=== PATIENT | female | born 1960 | race Caucasian/White ===

== ENCOUNTER 2022-05-05 10:42 | Emergency (ER) | payer MEDICAID, OTHER ==
[~2022-05-05] VITALS: Ht 160 cm; Wt 65.9 kg
[2022-05-05] MEDS ORDERED: BUSP10TA PO (11:03)
[2022-05-05 11:57] LABS: BASO % 0.4 % (0.0-1.0); EOS # 0.3 10^3/uL (0.0-0.5); EOS % 2.6 % (0.0-3.0); LYMPH # 2.2 10^3/uL (1.5-5.0); MEAN CORPUSCULAR HGB CONC 32.4 g/dl (32.0-36.5); MEAN CORPUSCULAR VOLUME 86.4 fl (80.0-96.0); MONO # 0.9 10^3/uL (0.0-0.8); MONO % 7.7 % (2.0-8.0); NEUTROPHILS # 7.9 10^3/uL (1.5-8.5); NEUTROPHILS % 69.8 % (36.0-66.0); PLATELET COUNT, AUTOMATED 283 10^3/uL (150-450); RED BLOOD COUNT 4.28 10^6/uL (4.00-5.40); WHITE BLOOD COUNT 11.4 10^3/uL (4.0-10.0)
[2022-05-05 12:12] LABS: CK-MB VALUE MASS < 1.0 NG/ML (<3.6)
[2022-05-05 12:13] LABS: CPK CREATINE PHOSPHOKINASE 110 U/L (34-145)
[2022-05-05] MEDS ORDERED: ISOVUE-370 76% 100ML VIAL As Ordered ONE (12:24)
[2022-05-05] MEDS ORDERED: ASPIRIN 81MG CHEW TABLET PO ONE (12:30)
[2022-05-05 13:00] VITALS: BP 161/83
== END 2022-05-05 13:34 | disposition home or self-care (01) ==
LOC: M ED 10:42
DX: R07.9 Chest pain, unspecified (principal); F43.10 Post-traumatic stress disorder, unspecified; Z91.013 Allergy to seafood; Z79.83 Long term (current) use of bisphosphonates

== ENCOUNTER 2022-06-10 08:19 | Emergency (ER) | payer OTHER ==
[~2022-06-10] VITALS: Ht 160 cm; Wt 72.7 kg
[~2022-06-10 08:19] MED LIST: BUSP10TA PO
[2022-06-10 09:19] LABS: BASO % 0.4 % (0.0-1.0); EOS # 0.3 10^3/uL (0.0-0.5); EOS % 3.2 % (0.0-3.0); HEMATOCRIT 39.8 % (36.0-47.0); HEMOGLOBIN 12.8 g/dl (12.0-15.5); LYMPH # 2.1 10^3/uL (1.5-5.0); LYMPH % 27.3 % (24.0-44.0); MEAN CORPUSCULAR HEMOGLOBIN 28.3 pg (27.0-33.0); MEAN CORPUSCULAR HGB CONC 32.2 g/dl (32.0-36.5); MEAN CORPUSCULAR VOLUME 87.9 fl (80.0-96.0); MONO # 0.6 10^3/uL (0.0-0.8); MONO % 7.8 % (2.0-8.0); NEUTROPHILS # 4.8 10^3/uL (1.5-8.5); PLATELET COUNT, AUTOMATED 307 10^3/uL (150-450); RED BLOOD COUNT 4.53 10^6/uL (4.00-5.40); WHITE BLOOD COUNT 7.8 10^3/uL (4.0-10.0)
[2022-06-10] MEDS ORDERED: ISOVUE-370 76% 100ML VIAL As Ordered ONE (09:32)
[2022-06-10 09:43] LABS: LIPASE 35 U/L (12-53)
[2022-06-10 09:43] LABS: ETHYL ALCOHOL (ETHANOL) 0.003 % (0.000-0.010)
[2022-06-10 09:45] LABS: ALBUMIN 3.7 G/DL (3.2-5.2); ALKALINE PHOSPHATASE 67 U/L (46-116); ALT/SGPT 13 U/L (7.0-40); AST/SGOT 17 U/L (<34); BILIRUBIN,DIRECT 0.2 MG/DL (<0.4); BILIRUBIN,TOTAL 0.5 MG/DL (0.3-1.2); CK-MB VALUE MASS < 1.0 NG/ML (<3.6); CPK CREATINE PHOSPHOKINASE 108 U/L (34-145); MB/CK RELATIVE INDEX 0.92 (< OR =4); TOTAL PROTEIN 6.3 G/DL (5.7-8.2)
[2022-06-10 09:45] LABS: ACETAMINOPHEN LEVEL < 2.0 UG/ML (10.0-20.0); SALICYLATE LEVEL < 3.0 MG/DL (<30)
[2022-06-10 09:48] LABS: THYROID STIMULATING HORMONE 0.124 uIU/ML (0.55-4.78)
[2022-06-10 09:50] LABS: FREE T4 1.21 NG/DL (0.89-1.76)
[2022-06-10 09:51] LABS: RSV AMPLIFICATION NEGATIVE (NEGATIVE)
[2022-06-10 10:10] LABS: INR 0.92; PARTIAL THROMBOPLASTIN TIME 28.6 SECONDS (24.8-34.2); PROTHROMBIN TIME 12.6 SECONDS (12.5-14.5)
[2022-06-10 10:22] LABS: CK-MB VALUE MASS < 1.0 NG/ML (<3.6)
[2022-06-10 10:24] LABS: CPK CREATINE PHOSPHOKINASE 101 U/L (34-145); MB/CK RELATIVE INDEX 0.99 (< OR =4)
[2022-06-10 11:24] LABS: AMPHETAMINES LEVEL URINE NEGATIVE (NEGATIVE); BARBITURATES URINE NEGATIVE (NEGATIVE); BENZODIAZEPINES URINE NEGATIVE (NEGATIVE); CANNABINOIDS URINE NEGATIVE (NEGATIVE); COCAINE METABOLITE URINE NEGATIVE (NEGATIVE); METHADONE URINE NEGATIVE (NEGATIVE); OPIATES URINE NEGATIVE (NEGATIVE); PHENCYCLIDINE URINE NEGATIVE (NEGATIVE)
[2022-06-10 12:17] LABS: CK-MB VALUE MASS < 1.0 NG/ML (<3.6)
[2022-06-10 12:19] LABS: CPK CREATINE PHOSPHOKINASE 113 U/L (34-145); MB/CK RELATIVE INDEX 0.88 (< OR =4)
[2022-06-10] MEDS ORDERED: AMLO25TA PO (12:43)
[2022-06-10] MEDS ORDERED: ASPI81CH33 PO (12:43)
[2022-06-10 12:46] VITALS: BP 180/89
[2022-06-10] MEDS ORDERED: amLODIPine 5 MG TAB PO ONE (13:00)
== END 2022-06-10 13:06 | disposition home or self-care (01) ==
LOC: M ED 08:19
DX: R07.9 Chest pain, unspecified (principal); I10 Essential (primary) hypertension; I44.4 Left anterior fascicular block; Z91.013 Allergy to seafood; Z79.82 Long term (current) use of aspirin; Z79.811 Long term (current) use of aromatase inhibitors; Z79.899 Other long term (current) drug therapy

== ENCOUNTER → 2022-08-03 | Outpatient (REF) | payer OTHER ==
[~2022-08-03] MED LIST changes: +AMLO25TA PO; +ASPI81CH33 PO
[2022-08-03 18:53] LABS: BASO % 0.3 % (0.0-1.0); EOS # 0.4 10^3/uL (0.0-0.5); EOS % 3.8 % (0.0-3.0); HEMATOCRIT 45.6 % (36.0-47.0); HEMOGLOBIN 14.3 g/dl (12.0-15.5); LYMPH # 2.4 10^3/uL (1.5-5.0); MEAN CORPUSCULAR HEMOGLOBIN 28.3 pg (27.0-33.0); MEAN CORPUSCULAR HGB CONC 31.4 g/dl (32.0-36.5); MEAN CORPUSCULAR VOLUME 90.1 fl (80.0-96.0); MONO # 0.6 10^3/uL (0.0-0.8); MONO % 6.7 % (2.0-8.0); NEUTROPHILS # 5.9 10^3/uL (1.5-8.5); PLATELET COUNT, AUTOMATED 343 10^3/uL (150-450); RED BLOOD COUNT 5.06 10^6/uL (4.00-5.40); WHITE BLOOD COUNT 9.3 10^3/uL (4.0-10.0)
[2022-08-03 19:11] LABS: ALBUMIN 3.9 G/DL (3.2-5.2); ALKALINE PHOSPHATASE 74 U/L (46-116); ALT/SGPT 20 U/L (7.0-40); AST/SGOT 24 U/L (<34); BILIRUBIN,TOTAL 0.4 MG/DL (0.3-1.2); BLOOD UREA NITROGEN 13 MG/DL (9-23); CALCIUM LEVEL 9.4 MG/DL (8.3-10.6); CARBON DIOXIDE LEVEL 29 MMOL/L (20-31); CHLORIDE LEVEL 105 MMOL/L (98-107); CHOLESTEROL LEVEL 216 MG/DL (<200); CHOLESTEROL RISK RATIO 3.33 (<5); CREATININE FOR GFR 0.57 MG/DL (0.55-1.30); GLOMERULAR FILTRATION RATE > 60.0 (>45); GLUCOSE, FASTING 77 MG/DL (74-106); HDL CHOLESTEROL 64.8 MG/DL (>40); NON-HDL-C 151.2 MG/DL; POTASSIUM SERUM 5.2 MMOL/L (3.5-5.1); SODIUM LEVEL 139 MMOL/L (136-145); TOTAL PROTEIN 6.8 G/DL (5.7-8.2); TRIGLYCERIDES LEVEL 81 MG/DL (<150)
[2022-08-03 19:46] LABS: HEMOGLOBIN A1c 5.2 % (4.0-6.0)
== END ==
LOC: M LAB REF 16:14
PROVIDERS: ATTEND Nurse Practitioner Family
DX: I10 Essential (primary) hypertension (principal); Z68.26 Body mass index [BMI] 26.0-26.9, adult

== ENCOUNTER → 2022-08-15 | Outpatient (CLI) | payer MEDICAID | LOC: M OUTALCOH 09:14 | PROVIDERS: ATTEND Psychiatry & Neurology Psychiatry | DX: F19.10 Other psychoactive substance abuse, uncomplicated (principal) ==

== ENCOUNTER 2022-08-17 10:51 | Outpatient (RCR) | payer MEDICAID | END 2022-08-18 | LOC: M OUTALCOH 10:51 | PROVIDERS: ATTEND Psychiatry & Neurology Psychiatry | DX: F15.20 Other stimulant dependence, uncomplicated (principal) ==

== ENCOUNTER → 2022-11-09 | Outpatient (CLI) | payer MEDICAID | LOC: M OUTALCOH 08:19 | PROVIDERS: ATTEND Psychiatry & Neurology Psychiatry | DX: F10.10 Alcohol abuse, uncomplicated (principal) ==

== ENCOUNTER 2022-11-15 09:01 | Outpatient (RCR) | payer MEDICAID | END 2022-11-17 | LOC: M OUTALCOH 09:01 | PROVIDERS: ATTEND Psychiatry & Neurology Psychiatry | DX: F15.20 Other stimulant dependence, uncomplicated (principal); F17.200 Nicotine dependence, unspecified, uncomplicated ==

== ENCOUNTER → 2022-11-27 | Outpatient (REF) | payer MEDICAID | LOC: M LAB REF 16:44 | PROVIDERS: ATTEND Nurse Practitioner Family | DX: R63.5 Abnormal weight gain (principal) ==

== ENCOUNTER → 2022-12-18 | Outpatient (RCR) | payer MEDICAID | LOC: M OUTALCOH 11-27 14:47 | PROVIDERS: ATTEND Psychiatry & Neurology Psychiatry | DX: F15.20 Other stimulant dependence, uncomplicated (principal) ==

== ENCOUNTER 2023-01-17 16:00 | Outpatient (RCR) | payer MEDICAID | END 2023-01-18 | LOC: M OUTALCOH 16:00 | PROVIDERS: ATTEND Psychiatry & Neurology Psychiatry | DX: F15.20 Other stimulant dependence, uncomplicated (principal) ==

== ENCOUNTER → 2023-03-16 | Outpatient (REF) | payer MEDICAID, OTHER ==
[2023-03-16 14:03] LABS: HEMOGLOBIN A1c 5.2 % (4.0-6.0)
[2023-03-16 14:22] LABS: ALBUMIN 3.7 G/DL (3.2-5.2); ALKALINE PHOSPHATASE 75 U/L (46-116); ALT/SGPT 13 U/L (7.0-40); AST/SGOT 18 U/L (<34); BILIRUBIN,TOTAL 0.5 MG/DL (0.3-1.2); BLOOD UREA NITROGEN 13 MG/DL (9-23); CALCIUM LEVEL 8.8 MG/DL (8.3-10.6); CARBON DIOXIDE LEVEL 27 MMOL/L (20-31); CHLORIDE LEVEL 103 MMOL/L (98-107); CHOLESTEROL LEVEL 217 MG/DL (<200); CHOLESTEROL RISK RATIO 4.34 (<5); CREATININE FOR GFR 0.55 MG/DL (0.55-1.30); GLOMERULAR FILTRATION RATE > 60.0 (>45); GLUCOSE, FASTING 85 MG/DL (74-106); LDL CHOLESTEROL 147.8 MG/DL (<100); POTASSIUM SERUM 4.2 MMOL/L (3.5-5.1); SODIUM LEVEL 139 MMOL/L (136-145); THYROID STIMULATING HORMONE 0.322 uIU/ML (0.55-4.78); TOTAL PROTEIN 6.6 G/DL (5.7-8.2); TRIGLYCERIDES LEVEL 96 MG/DL (<150)
== END ==
LOC: M LAB REF 12:20
PROVIDERS: ATTEND Family Medicine Addiction Medicine
DX: I10 Essential (primary) hypertension (principal)

== ENCOUNTER 2023-05-15 09:30 | Outpatient (RCR) | payer MEDICAID | END 2023-05-20 | LOC: M OUTALCOH 09:30 | PROVIDERS: ATTEND Psychiatry & Neurology Psychiatry | DX: F15.20 Other stimulant dependence, uncomplicated (principal) ==

== ENCOUNTER 2023-06-19 10:00 | Outpatient (RCR) | payer MEDICAID | END 2023-06-20 | LOC: M OUTALCOH 10:00 | PROVIDERS: ATTEND Psychiatry & Neurology Psychiatry | DX: F15.20 Other stimulant dependence, uncomplicated (principal) ==

== ENCOUNTER → 2023-07-19 | Outpatient (RCR) | payer MEDICAID | LOC: M OUTALCOH 09:37 | PROVIDERS: ATTEND Psychiatry & Neurology Psychiatry | DX: F15.20 Other stimulant dependence, uncomplicated (principal); F17.200 Nicotine dependence, unspecified, uncomplicated ==

== ENCOUNTER 2023-09-12 09:28 | Outpatient (RCR) | payer MEDICAID | END 2023-09-18 | LOC: M OUTALCOH 09:28 | PROVIDERS: ATTEND Psychiatry & Neurology Psychiatry | DX: F15.20 Other stimulant dependence, uncomplicated (principal) ==

== ENCOUNTER 2023-10-24 09:33 | Outpatient (RCR) | payer MEDICAID | END 2023-11-18 | LOC: M OUTALCOH 09:33 | PROVIDERS: ATTEND Psychiatry & Neurology Psychiatry | DX: Z72.0 Tobacco use (principal) ==

== ENCOUNTER → 2023-11-01 | Outpatient (REF) | payer MEDICAID ==
[2023-11-01 18:56] LABS: FREE T4 0.94 NG/DL (0.89-1.76); THYROID STIMULATING HORMONE 0.829 uIU/ML (0.55-4.78)
== END ==
LOC: M LAB REF 16:48
PROVIDERS: ATTEND Family Medicine Addiction Medicine
DX: R94.6 Abnormal results of thyroid function studies (principal)

== ENCOUNTER → 2023-11-07 | Outpatient (CLI) | payer MEDICAID | LOC: M OUTALCOH 09:33 | PROVIDERS: ATTEND Psychiatry & Neurology Psychiatry | DX: Z72.0 Tobacco use (principal) ==